=== PATIENT | male | born 1935 | race Two or more races ===

== ENCOUNTER 2024-04-11 12:55 | Day surgery (SDC) | payer OTHER, BC ==
[2024-04-11] MEDS: FERRIC CARBOXYMALTOSE 750 MG in SODIUM CHLORIDE 250 ML IVPB ONE (13:49)
[2024-04-11 14:01] VITALS: RESP 20; TEMP 97.7
[2024-04-11 17:30] VITALS: BP 176/48; PULSE 66
== END 2024-04-11 14:55 | disposition home or self-care (01) ==
LOC: JONCCHEMO 12:55 → J7W 12:57 → JONCCHEMO 14:55
PROVIDERS: ATTEND Student in an Organized Health Care Education/Training Program
PROC: 3E033GC Introduction of Other Therapeutic Substance into Peripheral Vein, Percutaneous Approach (ICD-10-PCS; principal; 2024-04-11)
DX: D53.9 Nutritional anemia, unspecified (principal)
CPT/HCPCS: 96365; J1439

== ENCOUNTER 2024-04-18 13:00 | Day surgery (SDC) | payer OTHER, BC ==
[2024-04-18] MEDS: FERRIC CARBOXYMALTOSE 750 MG in SODIUM CHLORIDE 250 ML IVPB ONE (13:06)
[2024-04-18 14:17] VITALS: RESP 20; TEMP 98.1
[2024-04-18 14:23] VITALS: BP 139/54; PULSE 63
== END 2024-04-18 14:25 | disposition home or self-care (01) ==
LOC: JONCCHEMO 13:00 → J7W 13:05 → JONCCHEMO 14:25
PROVIDERS: ATTEND Student in an Organized Health Care Education/Training Program
PROC: 3E033GC Introduction of Other Therapeutic Substance into Peripheral Vein, Percutaneous Approach (ICD-10-PCS; principal; 2024-04-18)
DX: D50.9 Iron deficiency anemia, unspecified (principal)
CPT/HCPCS: 96365; J1439